=== PATIENT | female | born 1950 | race Caucasian/White ===

== ENCOUNTER 2019-04-16 12:01 | Inpatient (IN) ==
[2019-04-10 18:55] LABS: Appearance,Urine HAZY; Bacteria,Urine 0 /hpf (0); Bilirubin,Urine NEG (NEG); Calcium Oxalate Crystals,Urine FEW /hpf (0); Color,Urine YELLOW; Culture Indicated,Urine NO; Glucose,Urine (UA) NEGATIVE (NEG); Ketones,Urine NEG (NEG); Leukocyte Esterase,Urine 250 /uL (NEG); Mucus,Urine FEW /hpf (0); Nitrate,Urine NEG (NEG); Protein,Urine NEG (NEG); Specific Gravity,Urine 1.023 (1.000-1.035); Urine Amorphous Crystals FEW /hpf (0); Urine Blood 0.03 mg/dL (<0.03); Urine RBC 6 /hpf (0-1); Urine Squamous Epithelial Cell 26 /hpf (0-4); Urine Transitional Epi Cells < 1 /hpf (0-2); Urine WBC 17 /hpf (0-4); Urobilinogen,Urine NEG (NEG)
[2019-04-10 19:05] LABS: Basophils # (Auto) 0 K/mcL (0.0-0.3); Basophils % (Auto) 0.5 % (0.0-2.0); Eosinophils # (Auto) 0.1 K/mcL (0.0-0.7); Eosinophils % (Auto) 1.7 % (0.0-7.0); Granulocytes % (Auto) 73.4 % (38.0-78.0); Hematocrit 36.5 % (36.0-48.0); Hemoglobin 11.8 g/dL (12.0-15.0); Lymphocytes # (Auto) 1.7 K/mcL (1.5-4.8); Lymphocytes % (Auto) 20.9 % (15.5-49.0); Mean Cell Volume 86.6 fL (80.0-100.0); Mean Corpuscular HGB Conc 32.3 g/dL (31.0-36.0); Mean Platelet Volume 7.7 fL (7.4-10.4); Monocytes # (Auto) 0.3 K/mcL (0.1-0.9); Monocytes % (Auto) 3.5 % (1.0-12.0); Platelet Count 350 K/mcL (140-440); RBC 4.22 M/mcL (4.00-5.20); Red Cell Distribution Width 15.5 % (11.5-14.5); WBC 7.9 K/mcL (4.5-11.0)
[2019-04-10 19:26] LABS: Blood Urea Nitrogen 16 mg/dl (8-23); Calcium 9.3 mg/dl (8.6-10.4); Carbon Dioxide 24 mmol/L (22-30); Chloride 102 mmol/L (96-108); Glomerular Filtration Rate 90; Glucose 102 mg/dL (70-105)
[~2019-04-16 12:01] MED LIST: 0.9 % SODIUM CHLORIDE 9 ML, KETOROLAC 30 MG, ROPIVACAINE HCL/PF 49.5 ML, EPINEPHrine 0.... IJ SCH; ACETAMINOPHEN 500 MG TABLET PO SCH; CELECOXIB 200 MG CAPSULE PO SCH; IPRATROPIUM/ALBUTEROL 3 ML AMPUL.NEB NEB PRN; PREGABALIN 75 MG CAPSULE PO SCH; SCOPOLAMINE 1 PATCH PATCH TOPICAL PRN; ceFAZolin 2 GM in DEXTROSE 5% IN WATER 50 ML IV SCH; oxyCODONE 10 MG TAB.ER.12H PO SCH
[2019-04-16] MEDS ORDERED: PROPOFOL 200 MG/20 ML VIAL IV ONE (15:25)
[2019-04-16] MEDS ORDERED: MIDAZOLAM 2 MG/2 ML VIAL IV ONE (15:25)
[2019-04-16] MEDS ORDERED: DEXAMETHASONE 10 MG/ML VIAL IV ONE (15:25)
[2019-04-16] MEDS ORDERED: ONDANSETRON 4 MG/2 ML VIAL IV ONE (15:25)
[2019-04-16] MEDS ORDERED: PHENYLEPHRINE 10 MG/ML VIAL IV ONE (15:25)
[2019-04-16] MEDS ORDERED: LIDOCAINE HCL/PF 100 MG/5 ML SYRINGE IV ONE (15:25)
[2019-04-16] MEDS ORDERED: KETAMINE 100 MG/ML ML IV ONE (15:25)
[2019-04-16] MEDS ORDERED: TRANEXAMIC ACID 1,000 MG/10 ML VIAL IV ONE (15:25)
[2019-04-16] MEDS ORDERED: ROPIVACAINE HCL/PF 20 ML VIAL IJ ONE (15:25)
[2019-04-16] MEDS ORDERED: fentaNYL 250 MCG/5 ML VIAL IV ONE (15:25)
[2019-04-16] MEDS ORDERED: GENTAMICIN SULFATE 800 MG/20 ML VIAL IR ONE (15:51)
[2019-04-16] MEDS ORDERED: METOPROLOL TARTRATE 5 MG/5 ML VIAL IV PRN (16:03)
[2019-04-16] MEDS ORDERED: NALOXONE HCL 0.4 MG/ML VIAL IV PRN (16:03)
[2019-04-16] MEDS ORDERED: ATROPINE SULFATE 0.4 MG/ML VIAL IV PRN (16:03)
[2019-04-16] MEDS ORDERED: METHOCARBAMOL 1,000 MG/10 ML VIAL IV PRN (16:03)
[2019-04-16] MEDS ORDERED: ONDANSETRON 4 MG/2 ML VIAL IV PRN ×2 (16:03→16:59)
[2019-04-16] MEDS ORDERED: fentaNYL 100 MCG/2 ML VIAL IV PRN (16:03)
[2019-04-16] MEDS ORDERED: ePHEDrine 50 MG/ML AMPUL IV PRN (16:03)
[2019-04-16] MEDS ORDERED: LABETALOL 5 MG/ML ML IV PRN (16:03)
[2019-04-16] MEDS ORDERED: diphenhydrAMINE 50 MG/ML VIAL IV PRN (16:03)
[2019-04-16] MEDS ORDERED: IPRATROPIUM/ALBUTEROL 3 ML AMPUL.NEB NEB PRN (16:03)
[2019-04-16] MEDS ORDERED: PROMETHAZINE 25 MG/ML VIAL IV PRN (16:03)
[2019-04-16] MEDS ORDERED: MEPERIDINE 25 MG/ML SYRINGE IV PRN (16:03)
[2019-04-16] MEDS ORDERED: FLUMAZENIL 0.1 MG/ML ML IV PRN (16:03)
[2019-04-16] MEDS ORDERED: MAGNESIUM HYDROXIDE 30 ML ORAL.SUSP PO PRN (16:59)
[2019-04-16] MEDS ORDERED: BISACODYL 10 MG SUPP.RECT PR PRN (16:59)
[2019-04-16] MEDS ORDERED: TRANEXAMIC ACID 1,000 MG/10 ML VIAL IV SCH (16:59)
[2019-04-16] MEDS ORDERED: BENZOCAINE/MENTHOL 1 LOZENGE PO PRN (16:59)
[2019-04-16] MEDS ORDERED: HYDROmorphone 2 MG/ML VIAL IV PRN (16:59)
[2019-04-16] MEDS ORDERED: POLYETHYLENE GLYCOL 3350 17 GM PACKET PO PRN (16:59)
[2019-04-16] MEDS ORDERED: ACETAMINOPHEN 325 MG TABLET PO PRN (16:59)
[2019-04-16] MEDS ORDERED: FLEETS ADULT ENEMA PR PRN (16:59)
--- NOTE | 2019-04-16 16:59 | Brief Operative Note ---
Date of procedure: 04/16/19 Pre-op diagnosis: Right shoulder djd with bicep tear Post-op diagnosis: same Procedure: Right shoulder reverse tsa and bicep tenodesis Grafts/Implants: Yes Anesthesia: ADILENE Surgeon: Carlos Garcia Linotype Machinist: Bill Washington Estimated blood loss (cc): 120 Specimens Removed/Pathology: none sent Condition: stable Disposition: PACU
[2019-04-16] MEDS ORDERED: HYDROmorphone 2 MG/ML VIAL IV ONE (17:35)
[2019-04-16] MEDS: KETOROLAC 15 MG/ML VIAL IV PRN ×2 (17:36→23:30)
--- NOTE | 2019-04-16 17:44 | XRay Report ---
CLINICAL INFORMATION: Postsurgical follow-up TECHNIQUE: AP and transscapular Y-view COMPARISON: None. FINDINGS: Status post right reverse shoulder arthroplasty. Prosthetic components are in anatomic positions. IMPRESSION: Status post right reverse shoulder arthroplasty. Interpreted and Authenticated by: Mandeep Patrick 04/16/19
[2019-04-16] MEDS: 0.45 % SODIUM CHLORIDE 1,000 ML IV SCH (19:56)
[2019-04-16] MEDS: DOCUSATE SODIUM 100 MG CAPSULE PO SCH (20:54)
[2019-04-16] MEDS: HYDROcodone/APAP 10/325MG TABLET PO PRN (20:54)
[2019-04-16] MEDS: 0.9 % SODIUM CHLORIDE 10 ML SYRINGE IV SCH (20:55)
[2019-04-16] MEDS ORDERED: amLODIPine 5 MG TABLET PO SCH (21:00)
[2019-04-16] MEDS ORDERED: TEMAZEPAM 15 MG CAPSULE PO PRN (21:00)
[2019-04-16] MEDS ORDERED: LISINOPRIL 20 MG TABLET PO SCH (21:00)
[2019-04-16] MEDS ORDERED: SENNOSIDES 1 TABLET PO SCH (21:00)
[2019-04-16] MEDS ORDERED: cloNIDine HCL 0.1 MG TABLET PO SCH (21:00)
[2019-04-16] MEDS: ceFAZolin 1 GM VIAL IV SCH (22:46)
[2019-04-17] MEDS: HYDROcodone/APAP 10/325MG TABLET PO PRN ×3 (02:10→09:52)
[2019-04-17] MEDS: 0.45 % SODIUM CHLORIDE 1,000 ML IV SCH (03:00)
[2019-04-17] MEDS: KETOROLAC 15 MG/ML VIAL IV PRN (05:56)
[2019-04-17] MEDS: 0.9 % SODIUM CHLORIDE 10 ML SYRINGE IV SCH (05:57)
[2019-04-17] MEDS ORDERED: OMEPRAZOLE 20 MG CAPSULE PO SCH (07:30)
--- NOTE | 2019-04-17 07:43 | Orthopedic Progress Note ---
Subjective Patient information: Note initiated : 04/17/19 at 7:42 am Service Date, if different from initiated Date: [] Patient: Adali Anderson 68 y/o F admitted on 04/16/19 for Right Reverse Total Shoulder Arthroplasty. Chief Complaint: [Pt is stable this morning on post operative day 1 without any significant concerns or complaints. Patients vital signs have remained stable. Patients dressing is dry and is grossly intact from a neurovas cular and motor standpoint. Patients 10 point ROS is otherwise negative. ] Objective Vital signs: Vital Signs Temp Pulse Pulse Pulse Resp BP Pulse Ox 04/17/19 06:33 98.1 F 86 14 140/71 96 04/17/19 02:57 98.0 F 92 H 20 141/77 95 04/16/19 23:29 98.0 F 95 H 18 122/67 92 04/16/19 20:51 85 156/87 93 04/16/19 19:51 83 151/86 92 04/16/19 19:21 78 162/94 93 04/16/19 18:51 75 153/89 92 04/16/19 18:36 75 158/89 92 04/16/19 18:21 74 156/89 92 04/16/19 18:06 75 158/87 92 04/16/19 17:51 73 159/90 93 04/16/19 17:50 97.4 F 74 10 L 150/85 94 04/16/19 17:42 72 10 L 160/90 92 04/16/19 17:32 73 10 L 160/106 100 04/16/19 17:22 74 10 L 185/116 98 04/16/19 17:17 73 73 71 10 L 185/112 100 04/16/19 17:12 78 10 L 200/121 100 04/16/19 17:07 97.7 F 79 79 12 176/99 100 04/16/19 12:01 97.5 F 89 18 156/94 98 Intake and Output 04/16/19 04/17/19 04/17/19 21:59 05:59 13:59 Intake Total 920 400 Output Total 1150 Balance -230 400 Intake: Oral 400 IV - Manual Only 920 Output: Void Amount 1100 Estimated Blood Loss 50 Other: Urine Appearance Clear Urine Color Dark Yellow Weight 127 lb 8 oz Intake & Output: Intake & Output 0804/17/19 04/17/19 21:59 05:59 13:59 Intake Total 920 400 Output Total 1150 Balance -230 400 Weight 127 lb 8 oz Intake: Oral 400 IV - Manual Only 920 Output: Void Amount 1100 Estimated Blood Loss 50 Other: Urine Appearance Clear Urine Color Dark Yellow Incision: Yes healing Incision clean and dry: Yes Dressing: Yes clean Neurological exam IM: Yes motor sensory intact, Yes neurovascular intact Extremities exam IM: Yes Foot pink and warm, Yes neurovascular intact - Labs CBC & BMP: 04/10/19 17:04 04/10/19 17:04 Labs: 04/10/19 17:04 Hgb 11.8 L Hct 36.5 Assessment and Plan (1) History of reverse total replacement of right shoulder joint The patient has been educated regarding dressing care, Physical Therapy recommendations, home exercises, restrictions, and follow up appointments. The patient has had all necessary DME prescribed. The patient has remained relatively stable during their hospital course. Leave Dermabond patch intact until followup Status: Acute
--- NOTE | 2019-04-17 07:45 | Discharge Summary ---
Ortho Discharge - TSA - Patient Instructions Diet: Regular Diet Activity: activity as tolerated Total Shoulder Protocol: Leave immobilizer in place except for bathing and ROM. Abduction pillow. Continue to wear sling until seen by physician. Codman Pendulum : These exercises use momentum produced by your body to move your shoulder joint. Bend your knees and shift your weight to your front leg, then back, allowing your arm to swing in the same directions. Using the same technique, alternately shift your weight between your right and left legs, allowing your arm to swing from side to side. These exercises are also performed in counterclockwise and clockwise circular motions. Typically these exercises are performed several times per day, for a set number repetitions or minutes, such as 20 times in a row or 5 minutes at a time. Dressing Care: May shower in 2 days - Problem Maintenance (1) History of reverse total replacement of right shoulder joint Status: Acute - Follow Up Plan Follow Up Appointments: Bill Washington PA-C [Physician Homicide Detective] - 05/01/19 1:40 pm Disposition: Home, Self-Care Prognosis: Good Rehab Potential: Good I certify that the patient requires SNF services: No Overall status at discharge: patient is progressing back to baseline - Orders For Discharge Prescriptions: Docusate Sodium [Colace] 100 mg PO BID #60 cap HYDROcodone/APAP 10/325MG [Bevier 10-325Mg] 1 - 2 tab PO Q4HP PRN #75 tab PRN Reason: Pain Level 3-6
[2019-04-17] MEDS: DOCUSATE SODIUM 100 MG CAPSULE PO SCH (08:26)
[2019-04-17] MEDS: ceFAZolin 1 GM VIAL IV SCH (08:27)
--- NOTE | 2019-04-17 08:55 | Operative Note ---
DATE OF OPERATION: 04/16/2019 PREOPERATIVE DIAGNOSES: Right shoulder rotator cuff arthropathy with severe arthritis and osteopenia. POSTOPERATIVE DIAGNOSIS: Right shoulder rotator cuff arthropathy with severe arthritis and osteopenia. PROCEDURE: Right reverse total shoulder. SURGEON: Carlos Garcia MD DUMP GRADER: Bill Washington PA-C. This provider's expertise and technical skill were required throughout the case. The PA assisted with preoperative coordination, intraoperative retraction, wound closure, dressing and splint application, as well as postoperative documentation and care coordination. ANESTHESIA: General LMA anesthesia. COMPLICATIONS: None. IMPLANTS: A size 12 stem, cementless with a small amount of cement. The glenoid had some bone graft and a metaglene with 4 screws per nurse's note, as well as a 36 mm glenosphere measuring 2 mm of offset and 2 mm of eccentricity, and a +6 poly liner. ESTIMATED BLOOD LOSS: Approximately 100 to 120 mL. No blood products were given. Tranexamic acid and preoperative antibiotics were given. DESCRIPTION OF PROCEDURE: The patient was brought to the operating room and put to sleep with general LMA anesthesia. The patient was sat in a beach chair position and the right arm sterilely prepped and draped. Timeout was performed confirmed this was the operative site as the right arm. I placed Ioban over the skin, confirming that she had received preoperative antibiotics and tranexamic acid. We then made a deltopectoral approach to the shoulder. Through this we identified the deltopectoral interval and this was retracted laterally. Severe adhesions were present. We released the subscap and the biceps tendon. The subscap was retracted medially. The biceps tendon was repaired to the pec major with #2 Ethibond stitches, two [id number] stitches. We then prepared the humeral head. This was dislocated removing osteophytes and releasing the capsule inferiorly. Using the guide, we made our bony cut at this surgical neck region. Humeral head was removed. A protective plate was placed and this was retracted posteriorly. We then performed a 360 degree capsule release and removing the labrum and the remnants of the biceps tendon. At this point, we placed a central pin and used reamers to make a perfectly smooth glenoid but given all the cystic findings, we did have to place some bone graft after removing cysts and the bone graft was put into place. We then placed a central screw measuring 32 mm and 6.5 in diameter central screw. The glenosphere was perfectly positioned. We then placed three surrounding screws, 36 mm, 36 mm, and 32 mm, all of which were locking screws. We retensioned all screws and placed a 36 mm glenosphere with 2 mm of offset and 2 mm of eccentricity, performing a 360 degree capsular release around the glenoid to confirm no impingement. We irrigated thoroughly and then prepared the humeral side. This was broached up to size 12. We trialed the size 12 with a standard poly. This was a little loose for tension. We then placed a 6 mm poly, 2 mm thicker than standard and this seemed to tension the shoulder perfectly. We took the shoulder through full range of motion, achieving full motion. I then placed a cementless stem with a small amount of cement on the distal end given her poor bone quality. This was placed perfectly in position and then we placed a +6 poly liner. This reduced very nicely, taking the arm again through full range of motion, both external rotation, internal rotation, and forward flexion. We then irrigated thoroughly. There was no bleeding from the cephalic vein. We closed the interval with 2-0 Vicryl and closed the skin with 2-0 Vicryl and adhesive closure. The patient was placed in a Donjoy sling. There were no complications. Blood loss was about 120 mL. CHUCKIE:violetta Job ID: [id number] Doc ID: [id number] Carlos Garcia MD
[2019-04-17] MEDS ORDERED: SERTRALINE 50 MG TABLET PO SCH (09:00)
== END 2019-04-17 10:35 | disposition home or self-care (01) | DRG 483 ==
LOC: MEDSUR 12:01
PROVIDERS: ADMIT Orthopaedic Surgery; ATTEND Orthopaedic Surgery